=== PATIENT | female | born 1970 | race African-American/Black ===

== ENCOUNTER 2016-05-28 17:38 | Emergency (ER) | payer MEDICAID | END 2016-05-28 19:04 | disposition home or self-care (01) | LOC: D.ER 17:38 | DX: S90.02XA Contusion of left ankle, initial encounter (principal); W22.8XXA Striking against or struck by other objects, initial encounter; Y93.89 Activity, other specified; Y92.019 Unspecified place in single-family (private) house as the place of occurrence of the external cause; F41.9 Anxiety disorder, unspecified ==